=== PATIENT | female | born 1965 | race Hispanic/Latino ===

== ENCOUNTER 2018-12-10 09:29 | Emergency (ER) | payer BC ==
[~2018-12-10] VITALS: Ht 170.2 cm; Wt 86.0 kg
[2018-12-10] MEDS ORDERED: TRESIBA FL100 UNIT/M SC (09:56)
[2018-12-10] MEDS ORDERED: PANTOPRAZOLE SO40 M1 PO (09:57)
[2018-12-10] MEDS ORDERED: NOVOLOG FL100 UNIT/M SC (09:57)
[2018-12-10] MEDS ORDERED: ULTRAM50 M1 PO (09:59)
[2018-12-10] MEDS ORDERED: PERCOCET 5/325M1 TAB PO (09:59)
[2018-12-10 13:02] LABS: URINE BILIRUBIN - DIPSTICK NEGATIVE (NEGATIVE); URINE BLOOD DIPSTICK SMALL (NEGATIVE); URINE COLOR YELLOW; URINE GLUCOSE - DIPSTICK >=1000 mg/dL (NEGATIVE); URINE KETONE NEGATIVE (NEGATIVE); URINE LEUK ESTERASE NEGATIVE (NEGATIVE); URINE NITRITE - DIPSTICK NEGATIVE (Negative); URINE PROTEIN - DIPSTICK NEGATIVE (NEG-TRACE); URINE UROBILINOGEN - DIPSTICK 0.2 E.U./dL (0.2)
[2018-12-10 13:13] LABS: URINE WBC 0-2 WBC/hpf (0-5)
[2018-12-10 13:14] LABS: URINE SQUAMOUS EPITHELIAL CELL FEW EPI/hpf (0-FEW)
[2018-12-10 14:37] VITALS: BP 178/81
== END 2018-12-10 14:30 | DRG 536 ==
LOC: ED 09:29
PROVIDERS: Family Medicine
DX: S72.102A Unspecified trochanteric fracture of left femur, initial encounter for closed fracture (principal); S92.001D Unspecified fracture of right calcaneus, subsequent encounter for fracture with routine healing; S62.101D Fracture of unspecified carpal bone, right wrist, subsequent encounter for fracture with routine healing; E11.9 Type 2 diabetes mellitus without complications; X58.XXXD Exposure to other specified factors, subsequent encounter; W18.11XA Fall from or off toilet without subsequent striking against object, initial encounter